=== PATIENT | male | born 1985 | race Caucasian/White ===

== ENCOUNTER → 2024-04-28 15:09 | Outpatient (CLI) | payer OTHER, SELFPAY ==
[2024-04-28 16:45] LABS: Appearance Urine UA CLEAR; Bilirubin Urine UA NEGATIVE (NEGATIVE); Color Urine UA YELLOW; Glucose Urine UA NEGATIVE (Negative); Ketones Urine UA NEGATIVE (NEGATIVE); Leukocyte Esterase Urine UA NEGATIVE (NEGATIVE); Nitrite Urine UA NEGATIVE (Negative); Occult Blood Urine UA NEGATIVE (Negative); Protein Urine UA NEGATIVE (Negative); Specific Gravity Urine UA 1.025 (1.000-1.035); Urobilinogen Urine UA 0.2 E.U./dL (0.2)
[2024-04-28 17:17] LABS: Erythrocyte Sedimentation Rate 14 MM/HR (0-15)
[2024-04-28 17:30] LABS: Bacteria Urine None Seen; Culture Indicated Urine Cult Not Indicated; Mucus Urine 3+ (Negative); RBC Urine None Seen (0-5/HPF); Squamous Epithelial Cell Urine None Seen (0-5/HPF); Urine Volume 10mL (spun); WBC Urine None Seen (0-5/HPF)
[2024-04-28 17:33] LABS: C-Reactive Protein Quant < 0.5 mg/dL (<1.0)
[2024-04-28 17:58] LABS: TSH w/ Reflex to FT4 1.53 uIU/mL (0.47-4.68)
[2024-05-01 18:39] LABS: ANA Screen, IFA Negative (.)
== END ==
PROVIDERS: PCP Family Medicine; Referring Provider Family Medicine; Visit Provider Family Medicine
DX: I73.00 Raynaud's syndrome without gangrene (principal)
CPT/HCPCS: 36415; 81001; 84443; 85651; 86038; 86140